=== PATIENT | male | born 1965 | race Caucasian/White ===

== ENCOUNTER 2022-02-19 08:58 | Outpatient (REF) | payer SELFPAY ==
[2022-02-19 09:08] LABS: Appearance Urine Cloudy; Color Urine DK YELLOW; Glucose Urine UA Negative (Negative); Leukocyte Esterase Urine Small (1+) (Negative); Nitrite Urine Negative (Negative); UMIC TRIGGER UACC YES; Urine Blood Large (3+) (Negative); Urine Ketones Trace mg/dL (Negative); Urine Protein 100 (2+) mg/dL (Neg-Trace)
[2022-02-19 09:14] LABS: Bacteria Urine 3+ (None Seen); Hyaline Casts Urine 0-2 /LPF (0-2); RBC Urine >20 /HPF (0-2); Squamous Epithelial Cell Urine 0-2 /HPF (0-2); UACC Culture Trigger YES; WBC Urine >50 /HPF (0-5)
== END 2022-02-19 08:59 | disposition home or self-care (01) ==
LOC: HO.LNP 08:58
PROVIDERS: Visit Provider Nurse Practitioner Adult Health
DX: R50.9 Fever, unspecified (principal)
CPT/HCPCS: 81001; 87086; 87088; 87186

== ENCOUNTER 2022-09-18 11:02 | Outpatient (REF) | payer SELFPAY ==
[2022-09-18 11:15] LABS: Appearance Urine Clear; Color Urine Yellow; Glucose Urine UA Negative (Negative); Leukocyte Esterase Urine Negative (Negative); Nitrite Urine Negative (Negative); PH 7.5 (5.0-9.0); Specific Gravity - Urine 1.015 (1.005-1.025); Urine Blood Negative (Negative); Urine Ketones Negative (Negative); Urine Protein Negative (Neg-Trace)
== END 2022-09-18 11:03 | disposition home or self-care (01) ==
LOC: HO.WMHL 11:02
PROVIDERS: Visit Provider Nurse Practitioner Adult Health
DX: R53.83 Other fatigue (principal)
CPT/HCPCS: 81003; 87086

== ENCOUNTER 2023-03-28 09:20 | Outpatient (AMB) | payer OTHER, SELFPAY ==
--- NOTE | 2023-03-28 09:24 | A.OFFVIS_ITS ---
Intake Vital Signs 03/28/23 09:40 BP 128/84 Blood Pressure Location Lt brachial Position Sitting Pulse 52 Pulse Source Pulse Oximeter Pulse Oximetry (%) 97 Oxygen Delivery Method Room Air Intake Visit Reasons: NPV-dementia Intake Note: Pt presents to the office today for a new patient visit for dementia. Allergies No Known Allergies Allergy (Verified 03/28/23 09:36) HPI HPI Comments History of Present Illness Details 57y/o male comes for opinion regarding a dvanced dementia and possible NPH .He is currently in [facility]. He was seen at [facility] and had extensive evaluation. He had large volume LP , Prion disease eval was negative, he was diagnosed with Pulmonary sarcoidosis. According to their notes he had suboptimal response to LP. His problems started in 2017 with increase in anxiety- he was seen at [facility] Memory disorders program . His CT showed mild ventricular enlargement , PET was c/w ALzheimers. His progression was subacute, EEG was normal. He is with his girlfriend of 26 years. Video - Jan 2022 - good response to LP , normal stride and good gait [facility] Medical History Seizures Obesity NPH (normal pressure hydrocephalus) Anxiety Depression Dementia Social History Housing Other:: [facility] Alcohol intake: never Patient Tobacco Use Status: Never used Tobacco Use of substances other than those prescribed or required for medical reasons: No Review of Systems Neuro Reports confusion Psych Reports confusion Physical Exam Vital Signs: Last Vital Signs Pulse 52 03/28/23 09:40 BP 128/84 03/28/23 09:40 Pulse Ox 97 03/28/23 09:40 Oxygen Delivery Method Room Air 03/28/23 09:40 Const General: confusion and lethargic Nutritional Appearance: obese Orientation/consciousness: confusion and lethargic Neuro Other: He is in a stretcher- very lethargic responds to his name being called No asymmetry of his facial features No abnormal movements Moved all his extremities Tone normal Unable to evaluate speech or gait or cognition. General: confusion Cranial nerves: Yes Midline tongue present Deep tendon reflexes (DTR's): Right triceps reflex intensity grade: 1+, Left triceps reflex intensity grade: 1+, Rt Biceps (C5, C6): 1+, Left biceps reflex intensity grade: 1+, Right brachioradialis reflex intensity grade: 1+, Left brachioradialis reflex intensity grade: 1+, Right patellar reflex intensity grade: 1+ and Left patellar reflex intensity grade: 1+ Assessment & Plan Assessment & Plan (1) Dementia: Comment: advanced with behavioral changes and gait disturbance - Alzheimers ( early onset) Code(s): F03.90 - Unspecified dementia, unspecified severity, without behavioral disturbance, psychotic disturbance, mood disturbance, and anxiety Plan Record from [facility] and [place] for review I will evaluate him with CT brain and EEG Continue same medications for now Orders: Orders EEG electroencephalogram 03/28/23 F03.90 - Unspecified dementia, unspecified severity, without behavioral disturbance, psychotic disturbance, mood disturbance, and anxiety CT head/brain wo IV con 03/28/23 F03.90 - Unspecified dementia, unspecified severity, without behavioral disturbance, psychotic disturbance, mood disturbance, and anxiety Coding Level of Care Code New Pt Level 4 (37746) Diagnoses Dementia F03.90
[2023-03-28 09:40] VITALS: BP 128/84; PULSE 52; O2SAT 97
== END 2023-03-28 10:36 | disposition home or self-care (01) ==
PROVIDERS: Visit Provider Psychiatry & Neurology Neurology
DX: F03.90 Unspecified dementia, unspecified severity, without behavioral disturbance, psychotic disturbance, mood disturbance, and anxiety (principal)
CPT/HCPCS: 99204

== ENCOUNTER → 2023-03-28 09:20 | Outpatient (BNVA) | payer OTHER, SELFPAY | PROVIDERS: Visit Provider Psychiatry & Neurology Neurology | DX: F03.90 Unspecified dementia, unspecified severity, without behavioral disturbance, psychotic disturbance, mood disturbance, and anxiety (principal) | CPT/HCPCS: 99202 ==

== ENCOUNTER 2023-04-18 12:36 | Outpatient (REF) | payer OTHER, SELFPAY ==
--- NOTE | 2023-04-18 12:52 | EEG_ITS ---
FINDINGS: Background activity consists of diffuse muscle artifacts superimposed on a background of 6 to 7 hertz theta occasionally, getting up briefly to in the posterior quad rants. The patient is restless with an abundance of muscle artifacts throughout the record. Photic stimulation and hyperventilation were omitted. IMPRESSION: This is an abnormal EEG due to diffuse background slowing, consistent with a diffuse encephalopathic process. No paroxysmal features are identified. MD KRISTIE Ramirez/YESI / [id number]
== END 2023-04-18 12:37 | disposition home or self-care (01) ==
LOC: HO.NEURO 12:36
PROVIDERS: Visit Provider Psychiatry & Neurology Neurology
DX: F03.90 Unspecified dementia, unspecified severity, without behavioral disturbance, psychotic disturbance, mood disturbance, and anxiety (principal)
CPT/HCPCS: 95816

== ENCOUNTER 2023-05-23 12:28 | Outpatient (REF) | payer OTHER, SELFPAY ==
--- NOTE | ~2023-05-23 | CT_ITS ---
EXAMINATION: CT HEAD WITHOUT CONTRAST CLINICAL INFORMATION: Unspecified dementia. COMPARISON: There are no prior studies available for comparison. TECHNIQUE: Multidetector CT imaging of the head was obtained without the use of intravenous contrast. Coronal and sagittal reformatted images were generated at the technologist workstation. Some images are degraded by patient motion artifact. This CT examination was performed using dose optimization techniques as appropriate, variously including the following: *Automated exposure control *Adjustment of mA and/or kV according to patient size (this includes techniques or standardized protocols for targeted exams where dose is matched to indication/reason for exam; i.e. extremities or head) *Use of iterative reconstruction technique DLP: 1786 mGy-cm. FINDINGS: There is no evidence of acute intracranial hemorrhage or territorial infarction. No abnormal mass-effect or midline shift is seen. Rivera to white matter differentiation is well preserved. No extra-axial fluid collections are identified. There is prominence of the ventricles, without commensurate sulcal prominence, which raises the possibility of normal pressure hydrocephalus in the correct clinical setting. There are areas of low attenuation around the anterior posterior bodies of the lateral ventricles bilaterally. The osseous structures and soft tissues are normal. The frontal sinuses are hypoplastic. Accounting for motion artifact, the mastoid air cells and the other visualized paranasal sinuses appear well-aerated. CT/CT head/brain wo IV con IMPRESSION: 1. There are no acute bleeds or territorial infarcts. No masses are demonstrated. 2. There is prominence of the ventricles without commensurate sulcal prominence, which raises the possibility of normal pressure hydrocephalus in the correct clinical setting.
== END 2023-05-23 12:29 | disposition home or self-care (01) ==
LOC: HO.CT 12:28
PROVIDERS: Visit Provider Psychiatry & Neurology Neurology
DX: F03.90 Unspecified dementia, unspecified severity, without behavioral disturbance, psychotic disturbance, mood disturbance, and anxiety (principal)
CPT/HCPCS: 70450

== ENCOUNTER 2023-06-25 08:35 | Outpatient (AMB) | payer OTHER, SELFPAY ==
--- NOTE | 2023-06-25 08:35 | A.OFFVIS_ITS ---
Intake Intake Visit Reasons: follow up-Conf Intake Note: Pt presents for visit via teleheath to discuss concerns regarding hydrochephalus. Nenita will be attending visit from [facility]. Pt has become non-verbal. Termite Control Representative Required: No Allergies No Known Allergies Allergy (Verified 06/25/23 08:37) HPI HPI Comments History of Present Illness Details 58y/o male calls for follow up advanced dementia and possible NPH .His guardian and girl friend Nenita Cummins helps with todays appointment. He is currently in [facility] and no change in his neurologicla status. Nenita wnats another LP- large volume to see if it will help his mentation His EEG showed diffuse slowing CT shows Large ventricles He was seen at [facility] and had extensive evaluation. He had large volume LP , Prion disease eval was negative, he was diagnosed with Pulmonary sarcoidosis. According to their notes he had suboptimal response to LP. His problems started in 2017 with increase in anxiety- he was seen at [facility] Memory disorders program . His CT showed mild ventricular enlargement , PET was c/w ALzheimers. His progression was subacute, EEG was normal. He is with his girlfriend of 26 years. Video - Jan 2022 - good response to LP , normal stride and good gait [facility] Medical History (Updated 06/25/23 @ 09:31 by Bertha Beyer MD) NPH (normal pressure hydrocephalus) Seizures Obesity NPH (normal pressure hydrocephalus) Anxiety Depression Dementia Social History Housing Other:: [facility] Alcohol intake: never Patient Tobacco Use Status: Never used Tobacco Assessment & Plan Assessment & Plan (1) Dementia: Comment: advanced with behavioral changes and gait disturbance - Alzheimers ( early onset) Code(s): F03.90 - Unspecified dementia, unspecified severity, without behavioral disturbance, psychotic disturbance, mood disturbance, and anxiety Plan Reviwed CT and EEG report will repeat a large volume LP Orders: Orders FL guided lumbar puncture LP Today F03.90 - Unspecified dementia, unspecified severity, without behavioral disturbance, psychotic disturbance, mood disturbance, and anxiety, G91.2 - (Idiopathic) normal pressure hydrocephalus Telehealth Telehealth Location of provider rendering services: practice address Location of patient: address on file Patient Identification confirmed using: Name, : Yes Telehealth method: voice only Patient verbally consented to treatment: Yes Patient verbally consented to billing insurance company: Yes Patient informed of any privacy concerns related to visit: Yes Minutes spent on Phone/Video with Pt.: 12 Coding Level of Care Code Tele Est Pt Level 3 (96537) Diagnoses Dementia F03.90
== END 2023-06-25 13:28 | disposition home or self-care (01) ==
LOC: HO.HSMS 08:35
PROVIDERS: PCP Internal Medicine; Visit Provider Psychiatry & Neurology Neurology
DX: G30.0 Alzheimer's disease with early onset (principal); F02.818 Dementia in other diseases classified elsewhere, unspecified severity, with other behavioral disturbance
CPT/HCPCS: 99442

== ENCOUNTER → 2023-06-25 08:35 | Outpatient (BNVA) | payer OTHER, SELFPAY | PROVIDERS: PCP Internal Medicine; Visit Provider Psychiatry & Neurology Neurology ==

== ENCOUNTER 2023-07-27 09:27 | Day surgery (SDC) | payer OTHER, SELFPAY ==
--- NOTE | ~2023-07-27 | FL_ITS ---
FLUOROSCOPIC GUIDED LUMBAR PUNCTURE INDICATION: Dementia. Normal pressure hydrocephalus. Neurologist requests large volume lumbar puncture. Risks and benefits and possible complications were discussed with the patient's spouse and the consent form was signed. Patient was placed prone on the fluoroscopy table. The back was prepped and draped in routine sterile fashion. Betadine was used as a skin antiseptic. Utilizing fluoroscopic guidance, the L4-5 intralaminar space was accessed with a 20-gauge quinkie spinal needle and clear CSF fluid obtained. Opening pressure was unable to be accurately obtained due to patient's mental status. A total of 40 cc of clear CSF fluid was sent for analysis. The needle was removed without immediate complications. Total fluoroscopy time: 0.5 min FL/FL guided lumbar puncture LP IMPRESSION: Successful fluoroscopic large volume lumbar puncture. No immediate complication. This procedure was performed by Rex Pierre PA-C and supervised by Dr. Yañez.
[2023-07-27 09:52] VITALS: BMI 31.7
[2023-07-27 11:45] VITALS: BP 117/52; PULSE 50; RESP 18; TEMP 36.6; O2SAT 97
[2023-07-27 12:12] LABS: CSF Appearance Clear, Colorless; CSF Tube # 1
[2023-07-27 12:15] VITALS: BP 121/73; PULSE 51; RESP 17; TEMP 36.6; O2SAT 97
[2023-07-27 12:24] LABS: Glucose CSF 53 mg/dL; Total Protein CSF 32.8 mg/dL (15-45)
[2023-07-27 14:35] LABS: CSF Monos 67 %; Lymphocytes CSF 33 %
[2023-07-27 14:36] LABS: Appearance CSF CLEAR; CSF Tube # 4; CSF Volume 7.5 ML; Color CSF COLORLESS; Red Blood Cell CSF 0 MM*3; White Blood Cell CSF 1 MM*3
== END 2023-07-27 12:36 | disposition home or self-care (01) ==
LOC: HO.SSS 09:27
PROVIDERS: Physician Assistant Surgical; PCP Internal Medicine; Visit Provider Psychiatry & Neurology Neurology
PROC: 009U3ZZ Drainage of Spinal Canal, Percutaneous Approach (ICD-10-PCS; CPT 62270; principal; 2023-07-27 11:00)
DX: F03.90 Unspecified dementia, unspecified severity, without behavioral disturbance, psychotic disturbance, mood disturbance, and anxiety (principal); G91.2 (Idiopathic) normal pressure hydrocephalus; R56.9 Unspecified convulsions; D86.0 Sarcoidosis of lung; F32.A Depression, unspecified; F41.9 Anxiety disorder, unspecified; E66.9 Obesity, unspecified
CPT/HCPCS: 62328; 82945; 84157; 87015; 87070; 87205; 89051

== ENCOUNTER → 2023-07-27 10:42 | Outpatient (BNV) | payer OTHER, SELFPAY | PROVIDERS: PCP Internal Medicine; Visit Provider Physician Assistant Surgical | DX: G91.2 (Idiopathic) normal pressure hydrocephalus (principal) | CPT/HCPCS: 62328 ==

== ENCOUNTER 2023-09-11 09:49 | Outpatient (AMB) | payer OTHER, SELFPAY ==
--- NOTE | 2023-09-11 10:07 | MHC.OFFVIS ---
Vital Signs 09/11/23 10:09 Height 5 ft 8 in BP 112/70 Blood Pressure Location Lt brachial Position Sitting Respiration 17 Pulse Source Palpation Pulse Oximetry (%) 94 Oxygen Delivery Method Room Air Intake Visit Reasons: Follow up - Confirmed Intake Note: Pt presents for a 2 month follow up for dementia. Pt is here with girlfriend, Nenita who is also his historian today. She states they are here for LP results, done at [facility]. Pt is much more lethargic, she is concerned about this. Early Childhood Associate Teacher Required: No Allergies No Known Allergies Allergy (Verified 09/11/23 10:08) HPI Comments Details: 58y/o male calls for follow up advanced dementia and possible NPH .His guardian and girl friend Nenita Cummins helps with todays appointment.He had a large volume LP on July 27 2023 - 40 cc of spinal fluid was removed. Opening pressure was not measured.As per his girlfriend he showed improvement in speech, movement, interactions, mood etc. He does not walk.He was moving his UE and LE more Todays visit he is very sedated in a wheel chair . He is currently in [facility] His EEG showed diffuse slowing CT shows Large ventricles He was seen at [facility] and had extensive evaluation. He had large volume LP , Prion disease eval was negative, he was diagnosed with Pulmonary sarcoidosis. According to their notes he had suboptimal response to LP. His problems started in 2016 with increase in anxiety- he was seen at [facility] Memory disorders program . His CT showed mild ventricular enlargement , PET was c/w ALzheimers. His progression was subacute, EEG was normal. He is with his girlfriend of 26 years. Video - Jan 2022 - good response to LP , normal stride and good gait [facility] Medical History NPH (normal pressure hydrocephalus) Seizures Obesity NPH (normal pressure hydrocephalus) Anxiety Depression Dementia Social History Housing Other:: [facility] Alcohol intake: never Patient Tobacco Use Status: Tobacco use Unknown Physical Exam Vital Signs: Last Vital Signs Resp 17 09/11/23 10:09 BP 112/70 09/11/23 10:09 Pulse Ox 94 09/11/23 10:09 Oxygen Delivery Method Room Air 09/11/23 10:09 Const Other: In a wheel chair today sedated Video - 2 days after LP - gen tremors . General: lethargic Nutritional Appearance: overweight Orientation/consciousness: lethargic Neuro Other: responds to his name being called No asymmetry of his facial features No abnormal movements Moved all his extremities Tone normal Unable to evaluate speech or gait or cognition. Deep tendon reflexes (DTR's): Right triceps reflex intensity grade: 1+, Left triceps reflex intensity grade: 1+, Rt Biceps (C5, C6): 1+, Left biceps reflex intensity grade: 1+, Right brachioradialis reflex intensity grade: 1+, Left brachioradialis reflex intensity grade: 1+, Right patellar reflex intensity grade: 1+ and Left patellar reflex intensity grade: 1+ Assessment & Plan Assessment & Plan (1) Dementia: Comment: advanced with behavioral changes and gait disturbance - Alzheimers ( early onset) with possible NPH Code(s): F03.90 - Unspecified dementia, unspecified severity, without behavioral disturbance, psychotic disturbance, mood disturbance, and anxiety Category: Medical Plan will repeat a large volume LP in 6 mths Girlfriend will fax his current med list Orders: Orders FL guided lumbar puncture LP 6 Months F03.90 - Unspecified dementia, unspecified severity, without behavioral disturbance, psychotic disturbance, mood disturbance, and anxiety, G91.2 - (Idiopathic) normal pressure hydrocephalus Coding Level of Care Code Est Pt Level 4 (30060) Diagnoses Dementia F03.90
[2023-09-11 10:09] VITALS: BP 112/70; RESP 17; O2SAT 94
== END 2023-09-11 10:38 | disposition home or self-care (01) ==
PROVIDERS: Visit Provider Psychiatry & Neurology Neurology
DX: F03.90 Unspecified dementia, unspecified severity, without behavioral disturbance, psychotic disturbance, mood disturbance, and anxiety (principal)
CPT/HCPCS: 99214

== ENCOUNTER → 2023-09-11 09:49 | Outpatient (BNVA) | payer OTHER, SELFPAY | PROVIDERS: Visit Provider Psychiatry & Neurology Neurology | DX: F03.90 Unspecified dementia, unspecified severity, without behavioral disturbance, psychotic disturbance, mood disturbance, and anxiety (principal) | CPT/HCPCS: 99212 ==

== ENCOUNTER 2024-02-27 08:57 | Day surgery (SDC) | payer OTHER, SELFPAY ==
--- NOTE | ~2024-02-27 | FL_ITS ---
FLUOROSCOPIC LUMBAR PUNCTURE INDICATION: Normal pressure hydrocephalus. Large volume lumbar puncture is requested by neurologist. TECHNIQUE: Risks and benefits and possible complications were discussed with the patient's guardian and the consent form was signed. Patient was placed prone on the fluoroscopy table. The back was prepped and draped in routine sterile fashion. Betadine was used as a skin antiseptic. Utilizing fluoroscopic guidance, the L4-5 level was accessed with a 20 gauge quinkie spinal needle and clear CSF fluid obtained. Opening pressure was unable to be obtained due to the patient's agitation. 40 cc of fluid was removed. The needle was removed without immediate complications. Total fluoroscopy time: 0.3 min FL/FL guided lumbar puncture LP IMPRESSION: Successful fluoroscopic large volume lumbar puncture. 40 cc of clear CSF was removed. This procedure was performed by Rex Pierre PA-C and supervised by Dr. Yañez. Electronically signed by: Gordon Yañez MD 02/27/2024 04:11 PM [facility]
[2024-02-27 09:45] VITALS: BMI 33.3
[2024-02-27 12:23] VITALS: BP 110/66; PULSE 80; RESP 16; TEMP 37.2; O2SAT 98
[2024-02-27 12:38] VITALS: BP 114/90; PULSE 80; RESP 18; O2SAT 98
[2024-02-27 12:57] VITALS: BP 118/77; PULSE 63; RESP 18; TEMP 36.8; O2SAT 98
== END 2024-02-27 13:20 | disposition home or self-care (01) ==
PROVIDERS: Physician Assistant Surgical; Visit Provider Psychiatry & Neurology Neurology
PROC: 009U3ZZ Drainage of Spinal Canal, Percutaneous Approach (ICD-10-PCS; CPT 62270; principal; 2024-02-27 11:00)
DX: G91.2 (Idiopathic) normal pressure hydrocephalus (principal); F03.90 Unspecified dementia, unspecified severity, without behavioral disturbance, psychotic disturbance, mood disturbance, and anxiety; R53.83 Other fatigue; R56.9 Unspecified convulsions
CPT/HCPCS: 62328; J2003

== ENCOUNTER → 2024-02-27 11:02 | Outpatient (BNV) | payer OTHER, SELFPAY | PROVIDERS: Visit Provider Physician Assistant Surgical | DX: G91.2 (Idiopathic) normal pressure hydrocephalus (principal) | CPT/HCPCS: 62328 ==

== ENCOUNTER 2024-03-25 10:31 | Outpatient (AMB) | payer OTHER, SELFPAY ==
--- NOTE | 2024-03-25 11:13 | A.OFFVIS_ITS ---
Vital Signs 03/25/24 11:13 Height 5 ft 8 in Intake Visit Reasons: Dementia Intake Note: Patient presents for follow up after lumbar puncture Allergies No Known Allergies Allergy (Verified 03/25/24 11:15) HPI Comments Details: 58y/o male comes for follow up advanced dementia and possible NPH with his Nurses aide. .He had a large volume LP on Feb 27 2024 - 40 cc of spinal fluid was removed. Opening pressure was not measured.As per his Nurses aide there was no change in his cognition or does not walk. He is wheel chair bound He is currently in [facility] His EEG showed diffuse slowing CT shows Large ventricles He was seen at [facility] and had extensive evaluation. He had large volume LP , Prion disease eval was negative, he was diagnosed with Pulmonary sarcoidosis. According to their notes he had suboptimal response to LP. His problems started in 2016 with increase in anxiety- he was seen at [facility] Memory disorders program . His CT showed mild ventricular enlargement , PET was c/w ALzheimers. His progression was subacute, EEG was normal. He is with his girlfriend of 26 years. Video - Jan 2022 - good response to LP , normal stride and good gait [facility] Medical History NPH (normal pressure hydrocephalus) Seizures Obesity NPH (normal pressure hydrocephalus) Anxiety Depression Dementia Social History Housing Other:: [facility] Alcohol intake: never Patient Tobacco Use Status: Tobacco use Unknown Physical Exam Const Other: In a wheel chair today sedated Video - 2 days after LP - gen tremors . General: lethargic Nutritional Appearance: overweight Orientation/consciousness: lethargic Neuro Other: No asymmetry of his facial features Mild tremors Tone - increased Unable to evaluate speech or gait or cognition. Deep tendon reflexes (DTR's): Right triceps reflex intensity grade: 1+, Left triceps reflex intensity grade: 1+, Rt Biceps (C5, C6): 1+, Left biceps reflex intensity grade: 1+, Right brachioradialis reflex intensity grade: 1+, Left brachioradialis reflex intensity grade: 1+, Right patellar reflex intensity grade: 1+ and Left patellar reflex intensity grade: 1+ Assessment & Plan Assessment & Plan (1) Dementia: Comment: advanced with behavioral changes and gait disturbance - Alzheimers ( early onset) with possible NPH Code(s): F03.90 - Unspecified dementia, unspecified severity, without behavioral disturba nce, psychotic disturbance, mood disturbance, and anxiety Category: Medical Qualifiers: Dementia type: Alzheimer's Alzheimer's disease onset: early onset Dementia severity: severe Dementia behavioral or psychological symptom: with other behavioral disturbance Qualified Code(s): G30.0 - Alzheimer's disease with early onset; F02.C18 - Dementia in other diseases classified elsewhere, severe, with other behavioral disturbance Plan Continue supportive care. Continue same medications Coding Level of Care Code Est Pt Level 4 (87130) Diagnoses Severe early onset Alzheimer's dementia with other behavioral disturbance G30.0; F02.C18 Dementia type: Alzheimer's Alzheimer's disease onset: early onset Dementia severity: severe Dementia behavioral or psychological symptom: with other behavioral disturbance
== END 2024-03-25 11:27 | disposition home or self-care (01) ==
PROVIDERS: PCP Internal Medicine; Visit Provider Psychiatry & Neurology Neurology
DX: G30.0 Alzheimer's disease with early onset (principal); F02.C18 Dementia in other diseases classified elsewhere, severe, with other behavioral disturbance
CPT/HCPCS: 99214

== ENCOUNTER → 2024-03-25 10:31 | Outpatient (BNVA) | payer OTHER, SELFPAY | PROVIDERS: PCP Internal Medicine; Visit Provider Psychiatry & Neurology Neurology | DX: G30.0 Alzheimer's disease with early onset (principal); G91.2 (Idiopathic) normal pressure hydrocephalus; F02.C18 Dementia in other diseases classified elsewhere, severe, with other behavioral disturbance | CPT/HCPCS: 99212 ==